=== PATIENT | male | born 1980 | race African-American/Black ===

== ENCOUNTER 2017-09-06 22:57 | Emergency (ER) | payer OTHER ==
[~2017-09-06] VITALS: Ht 188 cm; Wt 167.0 kg
[~2017-09-06 22:57] MED LIST: AUGM875T PO; CHOL50006 PO; MEDR4PAK3 PO
[2017-09-06 23:01] VITALS: BP 205/100; PULSE 62; RESP 22; TEMP 98.7; O2SAT 95
--- NOTE | 2017-09-07 00:32 | RADRPT ---
EXAM DATE/TIME: 09/07/2017 00:19 [place] COMPARISON: CHEST SINGLE AP, August 22, 2014, 22:09. INDICATIONS : Short of breath. Cough. MEDICAL HISTORY : None. SURGICAL HISTORY : None. ENCOUNTER: Initial ACUITY: 2 weeks PAIN SCORE: 4/10 LOCATION: Bilateral chest FINDINGS: A single view of the chest demonstrates the lungs to be symmetrically aerated without evidence of mas s, infiltrate or effusion. The cardiomediastinal contours are unremarkable. Osseous structures are intact. CONCLUSION: No acute disease. Jasbir Batres MD on September 07, 2017 at 0:30 Board Certified Radiologist. This report was verified electronically.
[2017-09-07 01:18] VITALS: O2SAT 96
--- NOTE | 2017-09-07 01:27 | PD ---
HPI Chief Complaint: Respiratory Symptoms Time Seen by Provider: 01:21 Travel History International Travel<30 days: No Contact w/Intl Traveler<30days: No Traveled to known affect area: No History of Present Illness HPI The patient is a 37 year old male who presents to the [facility] emergency department with a history of cough, congestion, bitemporal headache, palpitations, and wheezing that he reports began a week and a half ago. Reports that over the last few days the cough has been increasingly productive of green to brown sputum. He reports that he has had nasal congestion with little rhinorrhea. He reports that it began a day after he sustained the floors in his house. He does report having a problem with multiple environmental allergies. He is currently on maintenance injections for allergies with Dr. Robles. The patient reports having a history of allergy induced asthma, however he has not had a rescue inhaler at home for use for the last year as he has been doing well. He reports having a subjective fever. On review of systems otherwise, he denies having any neck pain, chest pain, however he does have chest tightness with trying to take a deep breath and pain in his chest with coughing,abdominal pain, vomiting, diarrhea, urinary symptoms , or neurologic symptoms. [facility] Past Medical History Narrative Medical The patient's past medical history is significant for hypertension, allergy related asthma, and hyperlipidemia. Asthma: Yes Cancer: No Cardiovascular Problems: Yes (MURMUR) High Cholesterol: Yes Diminished Hearing: No Endocrine: No Gastrointestinal Disorders: No Genitourinary: No Hypertension: Yes Immune Disorder: No Musculoskeletal: Yes Neurologic: No Psychiatric: No Reproductive: No Respiratory: Yes Influenza Vaccination: Yes Past Surgical History Narrative Surgical The patient's past surgical history is reportedly none. Oral Surgery: Yes (TONSILLECTOMY) Tonsillectomy: Yes Other Surgery: Yes Social History Alcohol Use: No Tobacco Use: No Substance Use: No Allergies-Medications (Allergen,Severity, Reaction): Coded Allergies: No Known Allergies (Unverified Allergy, Unknown, 09/07/17) Reported Meds & Prescriptions Reported Meds & Active Scripts Active Augmentin 875 mg Tab (Amoxicillin & Pot Clavulanate 875 mg Tab) 875 Mg Tab 875 Mg PO BID 10 Days Medrol Dosepak (Methylprednisolone) 4 Mg Josemanuel 4 Mg PO DIRECTED TAKE DIRECTED Reported Vitamin D (Cholecalciferol) 5,000 Unit Tab 5,000 Unit PO DAILY Physical Exam Narrative General: The patient is a well-developed well-nourished male in no acute distress. Head and Neck exam: Head is normocephalic atraumatic. Eyes: EOMI, pupils are equal round and reactive to light. Nose: Midline septum with pink mucous membranes Mouth: Dentition unremarkable. Moist mucus membranes. Posterior oropharynx is not erythematous. No tonsillar hypertrophy. Uvula midline. Airway patent. Neck: No palpable lymphadenopathy. No nuchal rigidity. No thyromegaly. Cardiovascular: Regular rate and rhythm without murmurs, gallops, or rubs. Lungs: Soft expiratory wheezes audible in bilateral posterior lung leonard, no rhonchi, no crackles Abdomen: Soft, without tenderness to palpation in all 4 quadrants of the abdomen. No guarding, rebound, or rigidity. Normal bowel sounds are audible. No tenderness on palpation of McBurney's point. Negative Noe sign. Extremities: No clubbing or cyanosis. The patient has trace pedal edema bilateral lower extremities. 2+ pulses in all 4 extremities. No calf tenderness on palpation Back: No spinous process tenderness to palpation. No costovertebral angle tenderness to palpation. Neurologic Exam: Grossly nonfocal. Skin Exam: No rash noted. Intact skin that is warm and dry. Data Data Last Documented VS Vital Signs Date Time Temp Pulse Resp B/P (MAP) Pulse Ox O2 Delivery O2 Flow Rate FiO2 09/07/17 01:18 96 Room Air 09/06/17 23:01 98.7 62 22 Orders Orders Complete Blood Count With Diff (09/06/17 23:28) Comprehensive Metabolic Panel (09/06/17 23:28) Iv Access Insert/Monitor (09/06/17 23:28) Electrocardiogram (09/06/17 23:28) Ecg Monitoring (09/06/17 23:28) Oximetry (09/06/17 23:28) Oxygen Administration (09/06/17 23:28) Chest, Single Ap (09/06/17 23:28) D-Dimer (09/07/17 01:49) Methylprednisolone So Succ Inj (Solumedr (09/07/17 02:00) Albuterol-Ipratropium Neb (Duoneb Neb) (09/07/17 02:00) Ceftriaxone Inj (Rocephin Inj) (09/07/17 02:00) Azithromycin (Zithromax) (09/07/17 03:00) Labs Laboratory Tests Test 09/07/17 01:30 09/07/17 02:09 White Blood Count 10.1 TH/MM3 Red Blood Count 5.53 MIL/MM3 Hemoglobin 13.5 GM/DL Hematocrit 41.7 % Mean Corpuscular Volume 75.4 FL Mean Corpuscular Hemoglobin 24.3 PG Mean Corpuscular Hemoglobin Concent 32.3 % Red Cell Distribution Width 16.6 % Platelet Count 351 TH/MM3 Mean Platelet Volume 7.6 FL Neutrophils (%) (Auto) 43.7 % Lymphocytes (%) (Auto) 42.2 % Monocytes (%) (Auto) 9.5 % Eosinophils (%) (Auto) 3.5 % Basophils (%) (Auto) 1.1 % Neutrophils # (Auto) 4.4 TH/MM3 Lymphocytes # (Auto) 4.3 TH/MM3 Monocytes # (Auto) 1.0 TH/MM3 Eosinophils # (Auto) 0.4 TH/MM3 Basophils # (Auto) 0.1 TH/MM3 CBC Comment DIFF FINAL Differential Comment Blood Urea Nitrogen 15 MG/DL Creatinine 0.99 MG/DL Random Glucose 102 MG/DL Total Protein 8.0 GM/DL Albumin 3.8 GM/DL Calcium Level 9.1 MG/DL Alkaline Phosphatase 87 U/L Aspartate Amino Transf (AST/SGOT) 15 U/L Alanine Aminotransferase (ALT/SGPT) 31 U/L Total Bilirubin 0.6 MG/DL Sodium Level 140 MEQ/L Potassium Level 3.8 MEQ/L Chloride Level 103 MEQ/L Carbon Dioxide Level 30.1 MEQ/L Anion Gap 7 MEQ/L Estimat Glomerular Filtration Rate 104 ML/MIN D-Dimer Quantitative (PE/DVT) 0.35 MG/L FEU [facility] Medical Decision Making Medical Screen Exam Complete: Yes Emergency Medical Condition: Yes Medical Record Reviewed: Yes Interpretation(s) Last Impressions Chest X-Ray 09/06/17 5782 Signed Impressions: Service Date/Time: Thursday, September 07, 2017 00:19 - CONCLUSION: No acute disease. Jasbir Batres MD Differential Diagnosis Asthma exacerbation, versus allergy exacerbation, versus pneumonia, versus bronchitis, versus acute sinusitis, versus pulmonary embolus Narrative Course During the course of the patient's emergency department visit, the patient's history, examination, and differential diagnosis were reviewed with the patient. The patient was placed on a policy intern with oximetry and frequent blood pressure monitoring. The patient had IV access obtained and blood work sent for analysis. The patient had an EKG done on arrival that shows a sinus bradycardia heart rate of 58, QRS duration is 101 ms, QTC [address] segment changes. The patient was initially provided Rocephin 1 g IV, Zithromax 500 p.o., Solu- Medrol 125 mg IV, DuoNeb 1. The patient's laboratory studies were reviewed and remarkable for a white count of 10.1, hemoglobin 13.5, platelets 351 with 9.5 monocytes. CMP is within normal limits, d-dimer is 0.35 decreasing likelihood of pulmonary embolism in this patient with no other significant risk factors Radiology studies were reviewed and remarkable for a chest x-ray that shows no acute cardiopulmonary disease. The patient appears to be experiencing an asthma exacerbation brought on by an upper respiratory infection. The patient will be discharged home with a prescription for a Medrol Dosepak taper, pro-air inhaler, and Zithromax. The patient is resting comfortably and feels better, is alert and in no distress. The patient's results and examination findings were discussed with the patient. The repeat examination is unremarkable and benign. The history, exam, diagnostic testing, and current condition do not suggest any significant pathology to warrant further testing, continued ED treatment, admission, or surgical evaluation at this point. The vital signs have been stable. The patient does not have uncontrollable pain, intractable vomiting, or other significant symptoms. The patient's condition is stable and appropriate for discharge. The patient will pursue further outpatient evaluation with a primary care physician or other designated or consulting physician as indicated in the discharge instructions. The patient expressed understanding and was agreeable with this plan. Diagnosis Primary Impression: Asthma exacerbation Qualified Codes: J45.21 - Mild intermittent asthma with (acute) exacerbation Additional Impressions: Bronchitis Upper respiratory infection Qualified Codes: J06.9 - Acute upper respiratory infection, unspecified Referrals: Primary Care Physician 3 days Patient Instructions: Acute Bronchitis (ED), Asthma (ED), General Instructions , Upper Respiratory Infection (ED) Med/Other Pt SpecificInfo: Prescription(s) given Scripts Albuterol 8.5 GM Inh (Proair Hfa 8.5 GM Inh) 90 Mcg/Act Aer 2 PUFF INH Q4-6H Y for SHORTNESS OF BREATH, #1 INHALER 0 Refills 108 mcg/actuation Prov: Mary Sevilla MD 09/07/17 Methylprednisolone Dosepak (Medrol Dosepak) 4 Mg Dspk 4 MG PO DIRECTED, #1 DSPK 0 Refills Per Pharmacist direction Prov: Mary Sevilla MD 09/07/17 Azithromycin (Azithromycin) 250 Mg Tab 250 MG PO DAILY for Infection for 4 Days, #4 TAB 0 Refills Prov: Mary Sevilla MD 09/07/17 Disposition: 01 DISCHARGE HOME Condition: Stable Mary Sevilla MD Sep 07, 2017 01:27
[2017-09-07 01:41] LABS: AUTOMATED NEUTROPHIL # 4.4 TH/MM3 (1.8-7.7); BASOPHIL # 0.1 TH/MM3 (0-0.2); BASOPHIL % 1.1 % (0.0-2.0); EOSINOPHIL # 0.4 TH/MM3 (0-0.4); EOSINOPHIL % 3.5 % (0.0-4.0); HEMATOCRIT 41.7 % (39.0-51.0); HEMOGLOBIN 13.5 GM/DL (13.0-17.0); LYMPH % 42.2 % (9.0-44.0); LYMPHOCYTE # 4.3 TH/MM3 (1.0-4.8); MEAN CELL VOLUME 75.4 FL (80.0-100.0); MEAN CORPUSCULAR HEMOGLOBIN 24.3 PG (27.0-34.0); MEAN CORPUSCULAR HGB CONC 32.3 % (32.0-36.0); MEAN PLATELET VOLUME 7.6 FL (7.0-11.0); MONO % 9.5 % (0.0-8.0); NEUT % 43.7 % (16.0-70.0); PLATELET COUNT 351 TH/MM3 (150-450); RED BLOOD COUNT 5.53 MIL/MM3 (4.50-5.90); RED CELL DISTRIBUTION WIDTH 16.6 % (11.6-17.2); WHITE BLOOD COUNT 10.1 TH/MM3 (4.0-11.0)
[2017-09-07] MEDS ORDERED: cefTRIAXone INJ 1,000 MG in SODIUM CHLORIDE 0.9% INJ 100 ML IV ONE (02:00)
[2017-09-07] MEDS ORDERED: RESP: ALBUTEROL 2.5 MG/IPRATROPIUM 0.5 MG NEB (SCH) NEB ONE (02:00)
[2017-09-07] MEDS ORDERED: methylPREDNISolone SOD SUCC 125 MG/2 ML VIAL IV PUSH ONE (02:00)
[2017-09-07 02:05] LABS: ALBUMIN 3.8 GM/DL (3.4-5.0); ALT (GPT) 31 U/L (12-78); AST (GOT) 15 U/L (15-37); BICARBONATE 30.1 MEQ/L (21.0-32.0); BLOOD UREA NITROGEN 15 MG/DL (7-18); CALCIUM 9.1 MG/DL (8.5-10.1); CHLORIDE 103 MEQ/L (98-107); CREATININE 0.99 MG/DL (0.60-1.30); GLOMERULAR FILTRATION RATE 104 ML/MIN (>89); GLUCOSE,RANDOM 102 MG/DL (74-106); SODIUM (NA) 140 MEQ/L (136-145)
[2017-09-07 02:07] LABS: ALKALINE PHOSPHATASE 87 U/L (45-117); TOTAL BILIRUBIN ADULT 0.6 MG/DL (0.2-1.0)
[2017-09-07] MEDS ORDERED: AZITHROMYCIN 250 MG TAB PO ONE (03:00)
[2017-09-07] MEDS ORDERED: AZIT250T3 PO (03:23)
[2017-09-07] MEDS ORDERED: MEDR4PAK PO (03:23)
[2017-09-07] MEDS ORDERED: ALBUAER3 INH (03:23)
--- NOTE | 2017-09-07 08:02 | EKG ---
Date Performed: 09/07/2017 Time Performed: 01:23:07 PTAGE: 37 years EKG: SINUS BRADYCARDIA BORDERLINE ECG No significant change from prior electrocardiogram. PREVIOUS TRACING : 08/22/2014 22.12 DOCTOR: Raymond Schmid Interpretating Date/Time 09/07/2017 08:00:07
== END 2017-09-07 03:54 | disposition home or self-care (01) ==
LOC: NEPC 22:57
DX: J45.21 Mild intermittent asthma with (acute) exacerbation (principal); J06.9 Acute upper respiratory infection, unspecified; R00.1 Bradycardia, unspecified
CPT/HCPCS: 71045; 80053; 85025; 85379; 93005; 94664; 96374; 96375; 99285; J0696; J2930